=== PATIENT | female | born 1985 | race Caucasian/White ===

== ENCOUNTER 2019-06-18 08:22 | Emergency (ER) | payer SELFPAY ==
[~2019-06-18] VITALS: Ht 152.4 cm; Wt 59.1 kg
[~2019-06-18 08:22] MED LIST: MOTRIN600 MG PO; PERCOCET 5/3251 TA1 PO; PRENATAL COMPLE1 TAB PO
[2019-06-18 08:27] VITALS: Ht 152.4 cm; Wt 59.1 kg
[2019-06-18 08:53] LABS: BASOPHILS 0.3 % (0-2); EOSINOPHILS 0.7 % (0-7); HEMATOCRIT 47.8 % (36.0-48.0); HEMOGLOBIN 16.7 g/dL (12-16); IMMATURE GRANULOCYTES 0.4 % (0-5); LYMPHOCYTES 27.8 % (15-50); MCH 31.7 pg (26.0-34.0); MCHC 34.9 g/dL (31.0-37.0); MCV 90.7 fL (80.0-100.0); MEAN PLATELET VOLUME 8.5 fL (7.4-10.4); MONOCYTES 11.1 % (2-11); NEUTROPHILS 59.7 % (40-80); RBC 5.27 10x6/uL (4.00-5.40); RDW 12.8 % (11.5-14.5); WBC 6.8 10x3/uL (4.8-10.8)
[2019-06-18 08:54] LABS: PLATELET COUNT 228 10x3/uL (130-400)
[2019-06-18 08:56] LABS: APPEARANCE CLEAR (CLEAR); COLOR YELLOW (YELLOW)
[2019-06-18 08:57] LABS: BILIRUBIN NEGATIVE (NEGATIVE); GLUCOSE NEGATIVE (NEGATIVE); KETONE NEGATIVE (NEGATIVE); NITRITE NEGATIVE (NEGATIVE); PROTEIN NEGATIVE (NEGATIVE); UROBILINOGEN NORMAL (NORMAL)
[2019-06-18 08:58] LABS: HCG URINE NEGATIVE (NEGATIVE)
[2019-06-18 09:03] LABS: ANION GAP 11.1 mmol/L (8-16); CARBON DIOXIDE 26.9 mmol/L (21.0-32.0)
[2019-06-18 09:11] LABS: BILIRUBIN - TOTAL 1.02 mg/dL (0.2-1.3); PROTEIN - SERUM 7.8 g/dL (6.4-8.2)
[2019-06-18] MEDS ORDERED: LOTREL 5/10 MG1 CAP PO (10:00)
[2019-06-18 10:23] VITALS: BP 156/108
== END 2019-06-18 10:24 | disposition home or self-care (01) ==
LOC: D.ER 08:22
PROVIDERS: Emergency Medicine
DX: I10 Essential (primary) hypertension (principal); F17.200 Nicotine dependence, unspecified, uncomplicated